=== PATIENT | male | born 1975 | race Caucasian/White ===

== ENCOUNTER → 2017-03-10 | Outpatient (CLI) | payer BC ==
--- NOTE | 2017-03-10 19:44 | RAD ---
CT ABDOMEN PELVIS WO CONTRAST dated 03/10/2017 7:24 PM Indication: Bilateral flank pain and lower back pain fatigue and fever. Comparison: No comparison is available. Technique: Contiguous axial imaging of the abdomen and pelvis performed without the administration of IV or oral contrast. One or more of the following individualized dose reduction techniques were utilized for this examination: 1. Automated exposure control 2. Adjustment of the mA and/or kV according to patient size 3. Use of iterative reconstruction technique Findings: Limited images of lung bases are clear. Heart size within normal limits. No pleural or pericardial effusion. Diffuse low-density of the liver suggesting fatty infiltration. No apparent hepatic mass. Spleen is normal in size. Pancreas, adrenal glands and gallbladder are unremarkable. 2 calcific stones at the midpole left kidney measuring 1 to 2 mm in size. 2 mm calcific stone at the midpole right kidney. No calculus along the course of either ureter. No hydronephrosis. Well-defined low density focus at the lower pole left kidney, most consistent with cyst. There is also a vague low density focus at the midpole right kidney that is too small to accurately characterize. Unopacified GI tract normal in caliber and contour. No focal bowel wall thickening. No inflammatory stranding in the mesentery. No ascites or lymphadenopathy. Appendix normal in caliber. Abdominal aorta normal in caliber. Images of the pelvis a nondistended urinary bladder. No calcific bladder stone. Prostate gland normal in size. No free fluid or lymphadenopathy. Bone windows show no acute findings. Mild multilevel spondylosis. IMPRESSION: 1. Bilateral nephrolithiasis, nonobstructive. 2. Mild hepatic steatosis. 3. Normal appendix. Electronically signed by: Donny Bowden MD (03/10/2017 7:41 PM)
== END | disposition home or self-care (01) ==
LOC: RAD 19:16
PROVIDERS: ATTEND Family Medicine
DX: N20.0 Calculus of kidney (principal); K76.0 Fatty (change of) liver, not elsewhere classified; N23 Unspecified renal colic; R53.83 Other fatigue; R50.9 Fever, unspecified
CPT/HCPCS: 74176